=== PATIENT | female | born 1995 | race Caucasian/White ===

== ENCOUNTER → 2020-04-01 21:42 | Observation (INO) ==
[~2020-04-01 21:42] MED LIST: Ringers Solution, Lactated 1,000 ML IVC SCH
== END | disposition home or self-care (01) ==
LOC: 1NENULAB
PROVIDERS: ADMIT Obstetrics & Gynecology; ATTEND Obstetrics & Gynecology

== ENCOUNTER 2020-05-03 06:00 | Inpatient (IN) ==
[2020-05-03] MEDS ORDERED: EPHEDrine 50 MG/ML VIAL IVP PRN ×2 (06:18→09:52)
[2020-05-03] MEDS ORDERED: Naloxone 0.4 MG/ML INJ IVP PRN (06:23)
[2020-05-03] MEDS ORDERED: Famotidine 20 MG/2 ML VIAL IVP PRN (06:23)
[2020-05-03] MEDS ORDERED: Metoclopramide 10 MG/2 ML VIAL IVP PRN (06:23)
[2020-05-03] MEDS ORDERED: Oxytocin 20 units/ LR 1000 mL 20 UNIT/1,000 ML BAG IVC SCH (06:30)
[2020-05-03 07:05] LABS: Basophils # 0.1 K/mcL (0.0-0.2); Basophils % 0.5 %; Eosinophils # 0.1 K/mcL (0.0-0.6); Eosinophils % 0.7 %; Hematocrit 35.1 % (35.3-44.9); Hemoglobin 11.2 g/dL (11.5-15.4); Immature Granulocytes % 1.1 % (0-4); Lymphocytes # 2.6 K/mcL (0.6-4.6); Lymphocytes % 24.9 %; Mean Corpuscular HGB Conc 31.9 g/dL (31.6-35.5); Mean Corpuscular Volume 84.6 fL (83.0-100.0); Mean Platelet Volume 12.1 fL (9.4-12.4); Monocytes # 0.4 K/mcL (0.0-1.3); Monocytes % 3.5 %; Neutrophils # 7.1 K/mcL (1.6-8.9); Platelet Count 202 K/mcL (140-400); Red Blood Count 4.15 M/mcL (3.82-4.97); Red Cell Distribution Width 14.8 % (11.5-14.5); Segmented Neutrophils % 69.3 %; White Blood Count 10.3 K/mcL (4.3-11.1)
[2020-05-03 07:56] LABS: Amphetamine Screen,Urine Negative ng/mL (Cutoff=1000); Barbiturate Screen,Urine Negative ng/mL (Cutoff=200)
[2020-05-03 07:57] LABS: Benzodiazepines Screen,Urine Negative ng/mL (Cutoff=300); Cannabinoid Screen,Urine Negative ng/mL (Cutoff = 50); Cocaine Screen,Urine Negative ng/mL (Cutoff= 300); Opiate Screen,Urine Negative ng/mL (Cutoff=300); Phencyclidine Screen,Urine Negative ng/mL (Cutoff=25)
[2020-05-03] MEDS ORDERED: *HR* FentaNYL (PF) 100 MCG/2 ML VIAL EP ONE (09:52)
[2020-05-03] MEDS ORDERED: Ropivacaine/PF 0.2% 20 ML VIAL EP ONE (09:52)
[2020-05-03] MEDS ORDERED: Epidural Premix (fent/bupiv) 110 ML EP SCH (10:00)
[2020-05-03] MEDS ORDERED: *HR* FentaNYL (PF) 100 MCG/2 ML VIAL ONE (10:27)
[2020-05-03] MEDS ORDERED: Ropivacaine/PF 0.2% 20 ML VIAL ONE (10:27)
[2020-05-03] MEDS ORDERED: 0.9 % Sodium Chloride 250 ML ONE (16:35)
[2020-05-03] MEDS: Ringers Solution, Lactated 1,000 ML IVC SCH (20:00)
[2020-05-03] MEDS: Epidural Premix (fent/bupiv) 110 ML EP SCH (20:01)
[2020-05-04] MEDS: Epidural Premix (fent/bupiv) 110 ML EP SCH (02:22)
[2020-05-04] MEDS: Ringers Solution, Lactated 1,000 ML IVC SCH (03:37)
[2020-05-04] MEDS ORDERED: Ondansetron 4 MG/2 ML VIAL IVP ONE (04:24)
[2020-05-04] MEDS ORDERED: Lanolin 7 G OINT...G. TP PRN (12:28)
[2020-05-04] MEDS ORDERED: Oxytocin 20 units/ LR 1000 mL 20 UNIT/1,000 ML BAG IVC ONE (12:28)
[2020-05-04] MEDS ORDERED: Oxytocin 20 units/ LR 1000 mL 20 UNIT/1,000 ML BAG IVC SCH (12:28)
[2020-05-04] MEDS: Acetaminophen 325 MG TABLET PO PRN (16:25)
[2020-05-04] MEDS ORDERED: Benzocaine/Menthol 56 GM AEROSOL SPRAY TP PRN (23:11)
[2020-05-05] MEDS: Acetaminophen 325 MG TABLET PO PRN (06:24)
[2020-05-05 08:02] VITALS: BP 101/55
[2020-05-05] MEDS ORDERED: Prenatal Vit/FA 1 EACH TABLET PO SCH (09:00)
== END 2020-05-05 13:50 | disposition home or self-care (01) | DRG 560 ==
LOC: 1NENULAB 06:07 → 1NENUOBS 05-04 12:06
PROVIDERS: ADMIT Obstetrics & Gynecology; ATTEND Obstetrics & Gynecology

== ENCOUNTER 2020-08-10 07:23 | Observation (INO) ==
[2020-08-10] MEDS ORDERED: Ondansetron 4 MG/2 ML VIAL IVP ONE (07:48)
[2020-08-10] MEDS ORDERED: 0.9 % Sodium Chloride 1,000 ML IVC ONE (07:48)
[2020-08-10] MEDS ORDERED: Isovue-370 500 ML BOTTLE IVP ONE (07:49)
[2020-08-10] MEDS ORDERED: *HR* FentaNYL (PF) 100 MCG/2 ML VIAL IVP ONE (07:50)
[2020-08-10 07:58] LABS: Bacteria,Urine Few per hpf (None-Few); Bilirubin,Urine Negative (Negative); Blood,Urine Negative (Negative); Clarity,Urine Turbid (Clear); Color,Urine Yellow (Yellow); Glucose,Urine (UA) Normal (Normal); Ketones,Urine Negative (Negative); Leukocyte Esterase,Urine Negative (Negative); Mucus,Urine Few per lpf (None-Few); Nitrite,Urine Negative (Negative); PH,Urine 5.5 pH Units (5.0-8.0); Protein,Urine Trace mg/dL (Neg-Trace); Specific Gravity,Urine > 1.030 (1.010-1.025); Squamous Epithelial Cell,Urine Moderate per hpf (None-Few)
[2020-08-10 08:10] LABS: Basophils % 0.3 %; Eosinophils % 0.2 %; Hematocrit 43.1 % (35.3-44.9); Immature Granulocytes % 0.4 % (0-4); Lymphocytes # 1.4 K/mcL (0.6-4.6); Lymphocytes % 12.3 %; Mean Corpuscular HGB Conc 32.5 g/dL (31.6-35.5); Mean Corpuscular Hemoglobin 27.3 pg (28.0-33.3); Mean Platelet Volume 10.6 fL (9.4-12.4); Monocytes # 0.6 K/mcL (0.0-1.3); Neutrophils # 9.2 K/mcL (1.6-8.9); Platelet Count 233 K/mcL (140-400); Red Blood Count 5.13 M/mcL (3.82-4.97); Segmented Neutrophils % 81.8 %; White Blood Count 11.3 K/mcL (4.3-11.1)
[2020-08-10 08:30] LABS: Alanine Aminotransferase 89 Units/L (7-52); Albumin/Globulin Ratio 1.9 (1.1-2.2); Alkaline Phosphatase 121 Units/L (34-104); Aspartate Amino Transferase 152 Units/L (13-39); BUN/Creatinine Ratio 22 (6-26); Bilirubin,Direct 0.5 mg/dL (0.0-0.2); Bilirubin,Indirect 0.7 mg/dL (0.0-1.0); Bilirubin,Total 1.2 mg/dL (0.3-1.0); Blood Urea Nitrogen 13 mg/dL (6-20); Calcium 9.7 mg/dL (8.6-10.3); Carbon Dioxide 26 mEq/L (23-29); Chloride 103 mEq/L (98-107); Globulin 2.7 g/dL (2.4-3.5); Glucose 102 mg/dL (70-105); Lipase 25 Units/L (11-82); Osmolality,Calculated 286 (280-300); Sodium 138 mEq/L (136-145); Total Protein 7.7 g/dL (6.4-8.9); eGFR For African Americans > 60 (> 60); eGFR For Non-African Americans > 60 (> 60)
[2020-08-10] MEDS ORDERED: *HR* FentaNYL (PF) 100 MCG/2 ML VIAL ONE (11:20)
[2020-08-10] MEDS ORDERED: *HR* Propofol 200 MG/20 ML VIAL IVP ONE (11:20)
[2020-08-10] MEDS ORDERED: Lidocaine -MPF 2% 2 ML VIAL ONE (11:21)
[2020-08-10] MEDS ORDERED: *HR* Rocuronium Bromide 50 MG/5 ML VIAL ONE (11:21)
[2020-08-10] MEDS ORDERED: Ondansetron 4 MG/2 ML VIAL ONE (11:21)
[2020-08-10] MEDS ORDERED: Lidocaine -MPF 4% 5 ML AMPUL ONE (11:21)
[2020-08-10] MEDS ORDERED: Dexamethasone 4 MG/ML VIAL ONE (11:21)
[2020-08-10] MEDS ORDERED: *HR* Midazolam HCl 2 MG/2 ML VIAL ONE (11:22)
[2020-08-10] MEDS ORDERED: Isovue-300 50ML VIAL ONE (11:26)
[2020-08-10] MEDS ORDERED: cefOXitin 1,000 MG, 0.9 % Sodium Chloride 1,000 ML IR ONE (12:00)
[2020-08-10 12:03] LABS: Adenovirus Not Detected (Not Detect); Bordetella Pertussis Not Detected (Not Detect); Chlamydophila pneumoniae Not Detected (Not Detect); Coronavirus 229E Not Detected (Not Detect); Coronavirus HKU1 Not Detected (Not Detect); Coronavirus NL63 Not Detected (Not Detect); Coronavirus OC43 Not Detected (Not Detect); Human Metapneumovirus Not Detected (Not Detect); Human Rhinovirus/Enterovirus Not Detected (Not Detect); Influenza A Subtype 2009 H1 Not Detected (Not Detect); Influenza B Not Detected (Not Detect); Mycoplasma pneumoniae Not Detected (Not Detect); Parainfluenza Virus 1 Not Detected (Not Detect); Parainfluenza Virus 2 Not Detected (Not Detect); Parainfluenza Virus 3 Not Detected (Not Detect); Parainfluenza Virus 4 Not Detected (Not Detect); Respiratory Syncytial Virus Not Detected (Not Detect); SARS-CoV-2 Not Detected (Not Detect)
[2020-08-10] MEDS ORDERED: CefOXitin 2,000 MG VIAL ONE (12:26)
[2020-08-10] MEDS ORDERED: *HR* OxyCODONE Immed Rel 5 MG TABLET PO PRN (12:55)
[2020-08-10] MEDS ORDERED: Ondansetron 4 MG/2 ML VIAL IVP PRN ×2 (12:55→15:17)
[2020-08-10] MEDS ORDERED: Promethazine Syrup 6.25 MG/5 ML PO PRN (12:55)
[2020-08-10] MEDS ORDERED: *HR* Labetalol 20 MG/4 ML SYRINGE IVP PRN (12:55)
[2020-08-10] MEDS ORDERED: *HR* HYDROmorphone PF 0.5 MG/0.5 ML SYRINGE IVP PRN (12:55)
[2020-08-10] MEDS ORDERED: cefOXitin 2,000 MG in Water for inj. (sterile) 20 ML IVP ONE (12:57)
[2020-08-10] MEDS ORDERED: *HR* HYDROMORPHONE 2 MG/ML VIAL ONE (13:19)
[2020-08-10] MEDS ORDERED: Ketorolac 30 MG/ML VIAL ONE (13:23)
[2020-08-10] MEDS ORDERED: *HR* OxyCODONE/APAP 5/325 TABLET PO PRN (15:17)
[2020-08-10] MEDS: 0.9 % Sodium Chloride 1,000 ML IVC SCH (15:27)
[2020-08-10] MEDS: cefOXitin 2,000 MG in Water for inj. (sterile) 20 ML IVP SCH ×2 (16:54→23:33)
[2020-08-11] MEDS: 0.9 % Sodium Chloride 1,000 ML IVC SCH (03:32)
[2020-08-11 07:00] VITALS: BP 106/68
== END 2020-08-11 10:43 | disposition home or self-care (01) ==
LOC: EMEROOARM 07:23 → 3ANU 07:23 → 3BNU 11:14
PROVIDERS: ADMIT Surgery; ATTEND Surgery